=== PATIENT | male | born 1935 | race Caucasian/White ===

== ENCOUNTER → 2017-09-28 10:31 | Outpatient (CLI) | payer OTHER, SELFPAY ==
--- NOTE | 2017-09-28 | DI.US.S_ITS ---
PROCEDURE: US ABDOMEN COMPLETE INDICATIONS: ABDOMINAL ANEURYSM TECHNIQUE: Real-time scanning was performed of the abdominal and retroperitoneal organs, with image documentation. COMPARISON: [facility], US, ABDOMEN COMPLETE, 10/24/2016, 11:10. FINDINGS: Liver: Liver is normal in size and normal in echotexture. Subtle 1.5 x 1.2 x 1.3 cm hypoechoic area in right lobe of liver adjacent to gallbladder fossa is seen with no internal vascularity. Gallbladder: Contains sludge material and small stones in its dependent portion. No gallbladder wall thickening or pericholecystic fluid. Biliary ducts: Intrahepatic bile ducts are non-dilated. Extrahepatic bile duct caliber measures 7 mm. Normal is 6-7 mm or less in diameter, or 10 mm or less post-cholecystectomy. Pancreas: Visualized portions of the pancreas are sonographically normal. The main pancreatic duct is again seen to be dilated up to 7 mm in diameter 2 small stones measures 5 and 6 mm in size seen within the pancreatic duct, not significantly changed from prior studies. Spleen: Spleen is normal in size and homogeneous in echotexture. Kidneys: Kidneys are normal in size and echotexture. Right kidney measures 10.1 cm long; left kidney measures 8.4 cm long. No hydronephrosis or nephrolithiasis. No solid masses. 2 x 2 by 3.2 cm cyst is seen in the midpole of right kidney. Aorta: Again noted is infrarenal abdominal aortic aneurysm measures up to 4.6 x 4.4 cm in transverse dimension compared to 4.5 x 4.3 cm in 2017. No evidence of rupture. No brandyn-aortic fluid. Proximal and mid abdominal aorta are normal in size. Iliacs: Proximal common iliac arteries are normal in caliber less than 2.5 cm. IVC: Intrahepatic inferior vena cava is patent. Miscellaneous: No free abdominal fluid. IMPRESSION: 1. Infrarenal abdominal aortic aneurysm, minimally increased in size compared to 2017 study, now measures 4.6 x 4.4 cm in axial dimension compared to 4.5 x 4.3 cm on previous study. 2. Right renal cyst and nonobstructing right renal stone. 3. Sludge and small stones in the dependent portion of gallbladder without evidence of acute cholecystitis. 4. Stable dilatation of main pancreatic duct with pancreatic ductal stones, not significantly changed from prior study. 5. 1.5 x 1.2 x 1.3 cm hypoechoic area in right lobe of liver which could represent a small hemangioma. No internal vascularity seen. Dictated by: Sukh Bazzi M.D. on 09/28/2017 at 13:12 Approved by: Sukh Bazzi M.D. on 09/28/2017 at 13:24
== END ==
PROVIDERS: PCP Family Medicine; Visit Provider Family Medicine
DX: I71.4 Abdominal aortic aneurysm, without rupture (principal)
CPT/HCPCS: 76700

== ENCOUNTER → 2018-04-17 10:32 | Outpatient (CLI) | payer OTHER, SELFPAY ==
--- NOTE | 2018-04-17 | DI.US.S_ITS ---
PROCEDURE: US RETRO PERITONEAL LIMITED INDICATIONS: ABDOMINAL AORTIC ANEURYSM WITHOUT RUPTURE TECHNIQUE: Real time scanning was performed of the aorta and iliac arteries, with image documentation. COMPARISON: , US, US ABDOMEN COMPLETE, 09/28/2017, 11:20. FINDINGS: Aorta: Proximal aortic diameter measures 2.5 cm. Mid-aorta measures 2.1 cm. Distal aortic diameter is 4.3 x 4.7 cm, and extending to involve 6.1 cm portion of distal abdominal aorta. This was measured at 4.6 x 4.9 cm in length on previous study. Thrombus formation within the aneurysmal sac is seen. No periaortic free fluid. Iliac arteries: Right common iliac artery measures 1.5 cm. Left common iliac artery measures 1.3 cm. Incidental finding of 4 mm calcification is again seen in pancreatic body/tail area unchanged from previous study. IMPRESSION: 1. Fusiform infrarenal abdominal aortic aneurysm now measures 4.3 x 4.7 cm in size, slightly decreased in size compared to 2018 study. No evidence of rupture. Thrombus formation within the aneurysmal sac. Dictated by: Sukh Bazzi M.D. on 04/17/2018 at 13:58 Approved by: Sukh Bazzi M.D. on 04/17/2018 at 14:01
== END ==
PROVIDERS: PCP Family Medicine; Visit Provider Family Medicine
DX: I71.4 Abdominal aortic aneurysm, without rupture (principal)
CPT/HCPCS: 76770; 76775

== ENCOUNTER 2018-10-03 12:53 | Emergency (ER) | payer OTHER, SELFPAY ==
[2018-10-03 13:01] VITALS: BP 165/77; PULSE 66; RESP 12; TEMP 36.4; O2SAT 96; BMI 26.9
--- NOTE | 2018-10-03 13:26 | DI.US.S_ITS ---
PROCEDURE: US AORTA LIMITED INDICATIONS: KNOWN AAA WITH HYPERTENSION TECHNIQUE: Real time scanning was performed of the aorta and iliac arteries, with image documentation. COMPARISON: None. FINDINGS: Aorta: Proximal aortic diameter measures 2.9 cm. Mid-aorta measures 2.2 cm. There is a distal abnormal aortic aneurysm, which measures 5.2 cm AP and 5.2 cm transversely, with a craniocaudal extent of 7.6 cm. This aneurysm previously measured 4.2 x 4.2 x 6.1 cm. The aneurysm contains mural thrombus and extends to the iliac bifurcation. Iliac arteries: Right common iliac artery measures 1.8 cm. Left common iliac artery measures 1.4 cm. Incidental note is made of a pancreatic ductal dilatation, measuring 9 mm. A cystic focus can be seen along the pancreas that measures 1.8 x 0.9 x 0.6 cm. IMPRESSION: There is a growing infrarenal abdominal aortic aneurysm. Increased abnormal pancreatic ductal dilatation, now measuring 6 mm. 1.8 cm cystic lesion associated pancreas. Differential diagnosis includes a pancreatic pseudocyst versus focal pancreatic dilatation or a cystic lesion of the pancreas. If clinically appropriate, a dedicated pancreas protocol CT or MRI could be considered for further evaluation. Dictated by: Fercho Montemayor M.D. on 10/03/2018 at 14:01 Approved by: Fercho Montemayor M.D. on 10/03/2018 at 14:04
--- NOTE | 2018-10-03 13:27 | DI.RAD.S_ITS ---
PROCEDURE: XR CHEST 1V INDICATIONS: hypertension, chest pain TECHNIQUE: One view of the chest was acquired. COMPARISON: None. FINDINGS: Surgical changes and devices: Median sternotomy changes are present. Lungs and pleura: The left diaphragm is not well-seen, which may be related to a superimposed area of mild pulmonary consolidation. No large effusion or definite pneumothorax is appreciated. Lucency within the lung apices may be present. Mediastinum: Mediastinal contours appear normal. Heart size is enlarged. There appears to be aortic atherosclerosis. Bones and chest wall: No suspicious bony lesions. Overlying soft tissues appear unremarkable. IMPRESSION: 1. Cardiomegaly without overt heart failure. 2. Possible left basilar atelectasis. Please correlate clinically to exclude superimposed pneumonia. Dictated by: Aiden Bauer M.D. on 10/03/2018 at 13:09 Approved by: Aiden Bauer M.D. on 10/03/2018 at 13:10
[2018-10-03 13:39] LABS: Add Manual Diff / Slide Review NO; Basophils Absolute Auto 200 /uL (0-100); Basophils Percent Auto 2.3 % (0-2); Eosinophils Absolute Auto 400 /uL (0-450); Eosinophils Percent Auto 5.6 % (2-4); Hematocrit 43.1 % (41-53); Hemoglobin 14.8 g/dL (13.5-17.5); Lymphocytes Absolute Auto 2000 /uL (1100-4500); Lymphocytes Percent Auto 26.8 % (25-40); Mean Corpuscular HGB Conc 34.2 % (30-36); Mean Corpuscular Hemoglobin 29.5 PG (26-34); Mean Corpuscular Volume 86.1 fL (80-100); Monocytes Absolute Auto 900 /uL (0-900); Neutrophils Absolute Auto 3900 /uL (1500-7000); Neutrophils Percent Auto 53.3 % (50-75); Platelet Count 141 X10^3/uL (150-400); Red Blood Cell Count 5.01 X10^6/uL (4.5-5.9); Red Cell Distribution Width 13.6 % (11.6-14.8); White Blood Cell Count 7.3 X10^3/uL (4.5-11.0)
--- NOTE | 2018-10-03 13:58 | ED_ITS ---
HPI - General Adult General Chief complaint: Hypertension Stated complaint: states DR wanted him seen to check his heart out Time Seen by Provider: 10/03/18 13:00 Source: patient Mode of arrival: ambulatory Limitations: no limitations History of Present Illness HPI narrative: Patient is an 82-year-old male who hypertension. He states that he takes atenolol for the last 18 years with blood pressure has been controlled. However over the last few days he has been under quite a lot of stresses blood pressure has been up to the 200s. His abdominal aortic aneurysm and his doctor was concerned it may have expanded with his elevated blood pressure. He actually has no abdominal pain nausea vomiting dizziness lightheadedness or passing out. He adamantly denies any chest pain shortness of breath pain with exertion or any symptoms. He states he would not be here if it were not for his doctor Onset (ago): day(s) Related Data Home Medications Medication Instructions Recorded Confirmed Vitamin D3 1 cap PO DAILY 10/03/18 10/03/18 ascorbic acid (vitamin C) [Vitamin 1,000 mg PO DAILY 10/03/18 10/03/18 C] atenolol 50 mg PO QPM 10/03/18 10/03/18 niacin 1,000 mg PO BEDTIME 10/03/18 10/03/18 vitamin E 400 unit PO DAILY 10/03/18 10/03/18 Allergies Allergy/AdvReac Type Severity Reaction Status Date / Time No Known Drug Allergies Allergy Verified 10/03/18 13:01 Review of Systems Review of Systems GENERAL: Denies chills, fatigue, malaise, fever, sweats, travel HEENT: Denies sinus pain, ear pain, sore throat, difficulty swallowing, neck pain RESPIRATORY: Denies dyspnea, cough, wheezing, hemoptysis, sputum. CARDIOVASCULAR: Denies chest pain, palpitations, orthopnea, edema GASTROINTESTINAL: Denies nausea, vomiting, abdominal pain, diarrhea, constipation, melena. : Denies dysuria, frequency, incontinence, hematuria, urinary retention, flank pain. MUSCULOSKELETAL: Denies weakness, joint pain, or bony pain SKIN: No rash, no erythema, no pruritus NEUROLOGIC: Denies weakness, dizziness, headache, numbness, change in speech, confusion PSYCHIATRIC: No concerning psychosocial issues. 12 point review of systems is negative except for those stated above and [facility] Medical History Hypertension (Acute) Social History Smoking Status: Never smoker Social History Smoking Status: Never smoker Exam Initial Vital Signs Initial Vital Signs: Vital Signs Temperature 97.6 F 10/03/18 13:01 Pulse Rate 66 10/03/18 13:01 Respiratory Rate 12 10/03/18 13:01 Blood Pressure 165/77 H 10/03/18 13:01 Pulse Oximetry 96 10/03/18 13:01 GENERAL: Alert well-appearing elderly male HEENT: Head atraumatic,EOMI, pupils reactive, face symmetric, moist mucous m embranes CARDIOVASCULAR: Regular rate and rhythm without murmurs, rubs or gallops. RESPIRATORY: Breath sounds equal bilaterally, no wheezes rales or rhonchi. ABDOMEN: Soft, nontender. Normoactive bowel sounds all 4 quadrants. No guarding or rebound. No pulsatile masses EXTREMITIES: Normal range of motion, no clubbing or edema. Neurovascularly intact NEUROLOGICAL: Alert and oriented x4.Normal gait and speech. Cranial nerves II through XII grossly intact. SKIN: Warm, dry, no laceration, no petechiae, no rashes or lesions. Course Orders Ordered: ED Orders 10/03/18 13:02 EKG-12 Lead Routine 10/03/18 13:26 US aorta limited Stat 10/03/18 13:27 XR chest 1V Stat 10/03/18 13:35 Complete Blood Count AUTO DIFF Stat Comprehensive Metabolic Panel Stat Lipase Stat Troponin & CK Cardiac Panel Stat 10/03/18 14:12 Urine Culture Stat Urine Microscopic Stat Vital Signs - 8 hr 10/03/18 13:01 10/03/18 14:13 10/03/18 15:30 Temperature 97.6 F Pulse Rate 66 57 L 60 Respiratory Rate 12 15 18 Blood Pressure 165/77 H Blood Pressure [Left Arm] 149/69 H 165/68 H Pulse Oximetry 96 94 95 Medical Decision Making Lab Data Lab results reviewed: Yes I reviewed the patient's lab results. Result diagrams: 10/03/18 13:35 10/03/18 13:35 Lab Results 10/03/18 10/03/18 10/03/18 Range/Units 13:35 13:35 14:12 WBC 7.3 (4.5-11.0) X10^3/uL RBC 5.01 (4.5-5.9) X10^6/uL Hgb 14.8 (13.5-17.5) g/dL Hct 43.1 (41-53) % MCV 86.1 (80-100) fL MCH 29.5 (26-34) PG MCHC 34.2 (30-36) % RDW 13.6 (11.6-14.8) % Plt Count 141 L (150-400) X10^3/uL Neut % (Auto) 53.3 (50-75) % Lymph % (Auto) 26.8 (25-40) % [place] % (Auto) 12.0 (3-14) % Eos % (Auto) 5.6 H (2-4) % Baso % (Auto) 2.3 H (0-2) % Neut # (Auto) 3900 (8182-6828) /uL Lymph # (Auto) 2000 (7916-6905) /uL [place] # (Auto) 900 (0-900) /uL Eos # (Auto) 400 (0-450) /uL Baso # (Auto) 200 H (0-100) /uL Sodium 142 (137-145) mmol/L Potassium 4.5 (3.4-5.1) mmol/L Chloride 106 (98-107) mmol/L Carbon Dioxide 25 (22-32) mmol/L BUN 22 H (9-20) mg/dL Creatinine 1.10 (0.66-1.25) mg/dL Estimated GFR > 60.0 (>60) mL/min BUN/Creatinine Ratio 20.0 (6-22) Glucose 85 (80-110) mg/dL Calcium 9.5 (8.4-10.2) mg/dL Total Bilirubin 0.6 (0.2-1.3) mg/dL AST 50 (17-59) IU/L ALT 24 (21-72) IU/L Alkaline Phosphatase 88 (38-126) U/L Total Creatine Kinase 111 (55-170) U/L CK-MB (CK-2) 1.30 (<2.37) ng/mL CK-MB (CK-2) Rel Index 1.2 L (1.5-5.0) % Troponin I < 0.012 (0.01-0.034) ng/mL Total Protein 8.6 H (6.3-8.2) g/dL Albumin 4.8 (3.5-5.0) g/dL Globulin 3.8 (1.7-4.1) g/dL Albumin/Globulin Ratio 1.3 (1.0-2.8) Lipase 122 (23-300) U/L Urine RBC 0-1/hpf (0-5/HPF) Urine WBC 30-100/hpf H (0-5/HPF) Urine Bacteria Moderate (10-30) H (None) Ur Culture Indicated? Specimen cultured Urine Dip Bedside Urine Glucose Negative Bedside Urine Bilirubin - Negative Bedside Urine Ketone - Negative Urine Specific [place] 1.025 Bedside Urine Occult Blood +/- Bedside Urine pH 6 Bedside Urine Protein +/- 15 Bedside Urine Urobilinogen - Negative Bedside Urine Nitrite - Negative Bedside Urine Leukocytes +++ 500 Esterase Point of care testing: Urine Dip Bedside Urine Glucose Negative Bedside Urine Bilirubin - Negative Bedside Urine Ketone - Negative Urine Specific [place] 1.025 Bedside Urine Occult Blood +/- Bedside Urine pH 6 Bedside Urine Protein +/- 15 Bedside Urine Urobilinogen - Negative Bedside Urine Nitrite - Negative Bedside Urine Leukocytes +++ 500 Esterase Imaging Data US - abdomen: Radiologist's impression: PROCEDURE: US AORTA LIMITED INDICATIONS: KNOWN AAA WITH HYPERTENSION TECHNIQUE: Real time scanning was performed of the aorta and iliac arteries, with image documentation. COMPARISON: None. FINDINGS: Aorta: Proximal aortic diameter measures 2.9 cm. Mid-aorta measures 2.2 cm. There is a distal abnormal aortic aneurysm, which measures 5.2 cm AP and 5.2 cm transversely, with a craniocaudal extent of 7.6 cm. This aneurysm previously measured 4.2 x 4.2 x 6.1 cm. The aneurysm contains mural thrombus and extends to the iliac bifurcation. Iliac arteries: Right common iliac artery measures 1.8 cm. Left common iliac artery measures 1.4 cm. Incidental note is made of a pancreatic ductal dilatation, measuring 9 mm. A cystic focus can be seen along the pancreas that measures 1.8 x 0.9 x 0.6 cm. IMPRESSION: There is a growing infrarenal abdominal aortic aneurysm. Increased abnormal pancreatic ductal dilatation, now measuring 6 mm. 1.8 cm cystic lesion associated pancreas. Differential diagnosis includes a pancreatic pseudocyst versus focal pancreatic dilatation or a cystic lesion of the pancreas. If clinically appropriate, a dedicated pancreas protocol CT or MRI could be considered for further evaluation. Dictated by: Fercho Montemayor M.D. on 10/03/2018 at 14:01 ECG Data Attestation: I personally reviewed and interpreted this ECG as follows: Prior ECG tracings: not available for review Interpretation: Sinus rhythm rate 63 p.r. interval 199 QRS 146 QTC 431 right bundle-branch block noted no ST elevations or T-wave inversions MDM Narrative Medical decision making narrative: The patient's PCP is not in the office today but I left a message with a motel front desk clerk Dr. Jose Luis Maynard real return to the office tomorrow. Given her method of enlarging aortic aneurysm and to follow up with vascular surgery. At this time patient is completely asymptomatic. No indication for any sort of emergent intervention of any kind. However vascular surgery does need to be consulted as an outpatient. Discharge Plan Departure Patient Disposition: Home Clinical Impression: Hypertension Qualifiers: Hypertension type: essential hypertension Qualified Code(s): I10 - Essential (primary) hypertension AAA (abdominal aortic aneurysm) Qualifiers: Presence of rupture: without rupture Qualified Code(s): I71.4 - Abdominal aortic aneurysm, without rupture Discharge Date/Time: 10/03/18 15:39 Interventions: ED Discharge Assessment Last Done: 10/03/18 15:39 Instructions: Aortic Aneurysm, DI for Endovascular Repair of Abdominal Aortic Aneurysm Activity Restrictions/Additional Instructions: *You have been diagnosed with abdominal aortic aneurysm and hyper *What to do: At this time you her aneurysm has grown but no emergent intervention required. It is imperative that he follow up vascular surgery. I have called Dr. beavers office and informed him of the results of your ultrasound. *Continue to take medications as directed *Follow up with your primary care provider in 2-3 days *Return to ER if you should have passing-out abdominal pain lightheadedness chest pain [or] any new, worsening or concerning symptoms Prescriptions: No Action ascorbic acid (vitamin C) [Vitamin C] 1,000 mg Tablet 1,000 mg PO DAILY RF: 0 niacin 1,000 mg Tablet Extended Release 24 Hr 1,000 mg PO BEDTIME RF: 0 atenolol 50 mg Tablet 50 mg PO QPM RF: 0 vitamin E 400 unit Capsule 400 unit PO DAILY RF: 0 Vitamin D3 1 cap PO DAILY RF: 0 Referrals: Gael Amaya MD [Primary Care Provider] -
[2018-10-03 13:59] LABS: Alanine Aminotransferase 24 IU/L (21-72); Albumin 4.8 g/dL (3.5-5.0); Albumin Globulin Ratio 1.3 (1.0-2.8); Alkaline Phosphatase 88 U/L (38-126); Aspartate Aminotransferase 50 IU/L (17-59); Bilirubin Total 0.6 mg/dL (0.2-1.3); Blood Urea Nitrogen 22 mg/dL (9-20); Calcium 9.5 mg/dL (8.4-10.2); Carbon Dioxide 25 mmol/L (22-32); Chloride 106 mmol/L (98-107); Creatine Kinase 111 U/L (55-170); Estimated Glomerular Filt Rate > 60.0 mL/min (>60); Globulin 3.8 g/dL (1.7-4.1); Glucose 85 mg/dL (80-110); HEMOLYSIS < 15 (0-50); Lipase 122 U/L (23-300); Potassium 4.5 mmol/L (3.4-5.1); Sodium 142 mmol/L (137-145); Total Protein 8.6 g/dL (6.3-8.2)
[2018-10-03 14:11] LABS: Troponin I < 0.012 ng/mL (0.01-0.034)
[2018-10-03 14:13] VITALS: BP 149/69; PULSE 57; RESP 15; O2SAT 94
[2018-10-03 14:15] LABS: CKMB % Relative Index 1.2 % (1.5-5.0)
--- NOTE | 2018-10-03 14:15 | PC.NURSE ---
pt c/o fluctuating high bp. pt states 2 days ago pt had episode of 3 sneezes, checked his bp and it was in the 200's. sneezing also caused ruptured blood vessel to left eye. today pt does not have HTN. pt states his primary md ordered out patient US of his heart pt states he is in town from [place] with his family and us was unable to schedule him today so he checked into ED. pt denies symptoms at this time.
[2018-10-03 15:03] LABS: Bacteria Urine Moderate (10-30); Culture Indicated Urine Specimen Cultured; RBC Urine 0-1/HPF (0-5/HPF); WBC Urine 30-100/HPF (0-5/HPF)
[2018-10-03 15:30] VITALS: BP 165/68; PULSE 60; RESP 18; O2SAT 95
== END 2018-10-03 15:39 | disposition home or self-care (01) ==
PROVIDERS: Emergency Provider Emergency Medicine; PCP Family Medicine
DX: I10 Essential (primary) hypertension (principal); I71.4 Abdominal aortic aneurysm, without rupture
CPT/HCPCS: 36591; 71045; 80053; 81003; 81015; 82550; 82553; 83690; 84484; 85025; 87077; 87086; 93005; 93979; 99283; 99285

== ENCOUNTER → 2020-09-25 10:33 | Outpatient (CLI) | payer MEDICARE, OTHER, SELFPAY ==
--- NOTE | 2020-09-25 10:35 | DI.US.S_ITS ---
PROCEDURE: US ABDOMEN COMPLETE INDICATIONS: DISTAL AORTIC ANEURYSM AND PANCREATIC DUCTAL DILATION TECHNIQUE: Real-time scanning was performed of the abdominal and retroperitoneal organs, with image documentation. COMPARISON: None. FINDINGS: Liver: Liver is normal in size and homogeneous in echotexture. Liver is diffusely echogenic. Hypoechoic area noted in the right lobe of the liver likely represents focal fatty sparing. Gallbladder: Multiple gallstones. 3 millimeter gallstones noted in the gallbladder neck. Gallbladder wall is not thickened measuring 2.3 millimeters. Gallbladder is prominent measuring 9.4 centimeters in long axis. No pericholecystic fluid. No sonographic Langley sign. Biliary ducts: Intrahepatic bile ducts are non-dilated. Extrahepatic bile duct caliber measures 5.7 mm. Normal is 6-7 mm or less in diameter, or 10 mm or less post-cholecystectomy. Pancreas: Not seen due to bowel gas. Spleen: Spleen is normal in size and homogeneous in echotexture. Kidneys: Kidneys are normal in size and echotexture. Right kidney measures 10.6 cm long; left kidney measures 9.6 cm long. Bilateral renal cysts identified. Bilateral nonobstructing renal calcifications noted. No hydronephrosis. No solid masses. Aorta: 5.4 x 5.5 centimeter distal abdominal aortic aneurysm. Iliacs: Proximal common iliac arteries are normal in caliber at less than 2.5 cm. IVC: Intrahepatic inferior vena cava is patent. Miscellaneous: No free abdominal fluid. IMPRESSION: 1. Echogenic liver. Finding typically represents fatty infiltration; however, finding is nonspecific and correlation with clinical and laboratory findings is recommended to exclude other etiologies including hepatic cirrhosis. 2. Cholelithiasis without sonographic evidence of cholecystitis. If there is continued clinical concern for cholecystitis, a nuclear medicine HIDA scan should be considered for further evaluation. 3. 5.5 x 5.4 centimeter abdominal aortic aneurysm. 4. Bilateral nonobstructing renal calcifications. Bilateral renal cysts. Dictated by: Kelsy Reyes MD, PhD on 09/25/2020 at 12:00 Approved by: Kelsy Reyes MD, PhD on 09/25/2020 at 12:04
== END ==
PROVIDERS: PCP Physician Assistant; Referring Provider Physician Assistant; Visit Provider Physician Assistant
DX: I71.4 Abdominal aortic aneurysm, without rupture (principal); K86.89 Other specified diseases of pancreas; I10 Essential (primary) hypertension; K80.20 Calculus of gallbladder without cholecystitis without obstruction; N20.0 Calculus of kidney; N28.1 Cyst of kidney, acquired
CPT/HCPCS: 76700

== ENCOUNTER → 2020-09-28 13:56 | Outpatient (CLI) | payer MEDICARE, OTHER, SELFPAY ==
[2020-09-28 19:24] LABS: Add Manual Diff / Slide Review NO; Basophils Absolute Auto 100 /uL (0-100); Basophils Percent Auto 1.1 % (0-2); Eosinophils Absolute Auto 400 /uL (0-450); Eosinophils Percent Auto 5.7 % (2-4); Hematocrit 41.3 % (41-53); Hemoglobin 13.8 g/dL (13.5-17.5); Lymphocytes Absolute Auto 1800 /uL (1100-4500); Lymphocytes Percent Auto 26.5 % (25-40); Mean Corpuscular HGB Conc 33.5 % (30-36); Mean Corpuscular Hemoglobin 29.4 PG (26-34); Mean Corpuscular Volume 87.7 fL (80-100); Monocytes Absolute Auto 400 /uL (0-900); Monocytes Percent Auto 6.6 % (3-14); Neutrophils Absolute Auto 4000 /uL (1500-7000); Neutrophils Percent Auto 60.1 % (50-75); Platelet Count 152 X10^3/uL (150-400); White Blood Cell Count 6.7 X10^3/uL (4.5-11.0)
[2020-09-28 19:36] LABS: Alanine Aminotransferase 20 IU/L (<50); Albumin 4.5 g/dL (3.5-5.0); Albumin Globulin Ratio 1.4 (1.0-2.8); Alkaline Phosphatase 78 U/L (38-126); Aspartate Aminotransferase 41 IU/L (17-59); Bilirubin Total 0.5 mg/dL (0.2-1.3); Blood Urea Nitrogen 27 mg/dL (9-20); Calcium 9.8 mg/dL (8.4-10.2); Carbon Dioxide 24 mmol/L (22-32); Chloride 108 mmol/L (98-107); Cholesterol 164 mg/dL (140-199); Estimated Glomerular Filt Rate 55.8 mL/min (>60); Globulin 3.3 g/dL (1.7-4.1); Glucose 183 mg/dL (80-110); HDL Cholesterol 32 mg/dL (40-60); HEMOLYSIS < 15 (0-50); LDL Cholesterol Calculated 96 mg/dL (<100); Potassium 4.3 mmol/L (3.4-5.1); Sodium 143 mmol/L (137-145); Total Protein 7.8 g/dL (6.3-8.2); Triglycerides 182 mg/dL (35-150); Uric Acid 9.7 mg/dL (3.5-8.5)
== END ==
PROVIDERS: PCP Physician Assistant; Referring Provider Physician Assistant; Visit Provider Physician Assistant
DX: E78.5 Hyperlipidemia, unspecified (principal); R73.01 Impaired fasting glucose; I10 Essential (primary) hypertension; I25.10 Atherosclerotic heart disease of native coronary artery without angina pectoris; M10.9 Gout, unspecified
CPT/HCPCS: 80053; 80061; 83036; 84550; 85025

== ENCOUNTER → 2020-12-02 11:48 | Outpatient (CLI) | payer MEDICARE, OTHER, SELFPAY ==
--- NOTE | 2020-12-02 11:50 | DI.MRI.S_ITS ---
PROCEDURE: MR LUMBAR SPINE WO CON INDICATIONS: low-back leg pains not improving TECHNIQUE: Noncontrast sagittal T1 spin echo and T2 fast echo, sagittal STIR, axial T1 and T2 fast spin echo through the lumbar spine. In cases with scoliosis, additional coronal T2 fast spin echo may be performed. COMPARISON: [facility], MR, L-SPINE WITHOUT CONTRAST, 03/03/2008, 12:31. FINDINGS: Image quality: Excellent. Alignment and Curvature: Trace degenerative retrolisthesis of T12 on L1, L1 on L2, and L2 on L3. Trace degenerative anterolisthesis of L4 on L5. Trace degenerative retrolisthesis of L5 on S1. Bone Marrow: Marrow is of normal overall signal. No acute vertebral body compression fractures. Spinal Cord: Conus medullaris terminates at the L1 level. Visualized cord demonstrates normal signal and size. Paraspinous Soft Tissues: No paravertebral masses. T11-T12: No significant change. Diffuse disc bulge with mild indentation on the ventral cord. Mild canal stenosis. Mild bilateral foraminal stenosis. T12-L1: Interval increase in disc height loss, severe. Posterior disc plus osteophyte. Interval development of a focal small left posterior disc protrusion which may irritate the left L1 nerve root in the left lateral recess. Reference image 9/2 (T2 sagittal sequence) and image 10/5 (T2 axial sequence). Moderate bilateral foraminal narrowing with mild flattening deformity on the exiting bilateral L1 nerve roots. L1-L2: Disc bulge. Facet hypertrophy. No significant canal stenosis. Moderate right foraminal narrowing with mild flattening deformity on the exiting right L2 nerve root. Mild to moderate left foraminal narrowing. L2-L3: Posterior disc plus osteophyte. Facet and ligament hypertrophy. Mild canal stenosis. Far left lateral disc bulge. Moderate bilateral foraminal narrowing with flattening deformity on the exiting bilateral L2 nerve roots. L3-L4: Development of moderate diffuse disc bulge. Worsening of bilateral facet and ligament hypertrophy. Moderate to severe canal stenosis. There is a free fragment present in the medial aspect of the right foramen which contributes to severe right foraminal stenosis and impingement on the right L3 nerve root. Reference image 5/2 and image 22/5. L4-L5: Mild anterolisthesis of L4 on L5. Exuberant facet and ligament hypertrophy. Severe bilateral lateral recess stenosis and moderate central canal stenosis. Moderate right foraminal narrowing with flattening deformity on the exiting right L4 nerve root. Mild to moderate left foraminal narrowing. L5-S1: Interval increase in disc height loss and increase in posterior osteophyte. Prominent bilateral facet hypertrophy. No significant central canal stenosis. Severe bilateral foraminal narrowing with bilateral foraminal nerve root impingement. IMPRESSION: 1. Diffuse degenerative change. 2. Significant progression of findings at L3-L4. Moderate to severe central canal stenosis has developed. Additionally, a free fragment in the medial aspect of the right foramen contributes to severe right foraminal stenosis and right L3 nerve root impingement. 3. At L4-L5, there is moderate central canal stenosis and severe bilateral lateral recess stenosis. 4. There is severe bilateral foraminal narrowing at L5-S1. 5. Multilevel facet arthropathy. Dictated by: Parker Soto M.D. on 12/02/2020 at 13:37 Approved by: Parker Soto M.D. on 12/02/2020 at 15:08
== END ==
PROVIDERS: PCP Physician Assistant; Referring Provider Physician Assistant; Visit Provider Physician Assistant
DX: M47.26 Other spondylosis with radiculopathy, lumbar region (principal); M47.27 Other spondylosis with radiculopathy, lumbosacral region; M48.061 Spinal stenosis, lumbar region without neurogenic claudication; M48.07 Spinal stenosis, lumbosacral region; I71.4 Abdominal aortic aneurysm, without rupture
CPT/HCPCS: 72148

== ENCOUNTER → 2020-12-15 09:20 | Outpatient (CLI) | payer MEDICARE, OTHER, SELFPAY ==
[2020-12-15 19:21] LABS: Hemoglobin A1C% w Est Avg Glu 6.1 % (4.0-6.0)
[2020-12-15 19:24] LABS: BUN Creatinine Ratio 16.7 (6-22); Blood Urea Nitrogen 20 mg/dL (9-20); Calcium 9.2 mg/dL (8.4-10.2); Carbon Dioxide 27 mmol/L (22-32); Chloride 105 mmol/L (98-107); Estimated Glomerular Filt Rate 57.3 mL/min (>60); Glucose 176 mg/dL (80-110); HEMOLYSIS < 15 (0-50); Potassium 4.6 mmol/L (3.4-5.1); Sodium 142 mmol/L (137-145)
== END ==
PROVIDERS: PCP Physician Assistant; Referring Provider Physician Assistant; Visit Provider Physician Assistant
DX: I10 Essential (primary) hypertension (principal); R73.01 Impaired fasting glucose; M10.9 Gout, unspecified
CPT/HCPCS: 80048; 83036

== ENCOUNTER → 2021-02-17 09:48 | Outpatient (CLI) | payer MEDICARE, OTHER, SELFPAY ==
[2021-02-17 19:24] LABS: Add Manual Diff / Slide Review NO; Basophils Absolute Auto 100 /uL (0-100); Basophils Percent Auto 1.3 % (0-2); Eosinophils Absolute Auto 400 /uL (0-450); Eosinophils Percent Auto 4.7 % (2-4); Hematocrit 36.5 % (41-53); Hemoglobin 11.9 g/dL (13.5-17.5); Lymphocytes Absolute Auto 1200 /uL (1100-4500); Lymphocytes Percent Auto 15.6 % (25-40); Mean Corpuscular HGB Conc 32.7 % (30-36); Mean Corpuscular Hemoglobin 27.9 PG (26-34); Mean Corpuscular Volume 85.3 fL (80-100); Monocytes Absolute Auto 700 /uL (0-900); Monocytes Percent Auto 8.9 % (3-14); Neutrophils Absolute Auto 5200 /uL (1500-7000); Neutrophils Percent Auto 69.5 % (50-75); Platelet Count 242 X10^3/uL (150-400); Red Blood Cell Count 4.28 X10^6/uL (4.5-5.9); Red Cell Distribution Width 14.1 % (11.6-14.8); White Blood Cell Count 7.4 X10^3/uL (4.5-11.0)
[2021-02-17 19:29] LABS: Alanine Aminotransferase 24 IU/L (<50); Albumin Globulin Ratio 1.1 (1.0-2.8); Alkaline Phosphatase 83 U/L (38-126); Aspartate Aminotransferase 44 IU/L (17-59); BUN Creatinine Ratio 14.5 (6-22); Bilirubin Total 0.4 mg/dL (0.2-1.3); Blood Urea Nitrogen 30 mg/dL (9-20); Calcium 9.2 mg/dL (8.4-10.2); Carbon Dioxide 24 mmol/L (22-32); Chloride 108 mmol/L (98-107); Estimated Glomerular Filt Rate 30.5 mL/min (>60); Globulin 3.6 g/dL (1.7-4.1); Glucose 122 mg/dL (80-110); HEMOLYSIS < 15 (0-50); Sodium 141 mmol/L (137-145); Total Protein 7.6 g/dL (6.3-8.2)
[2021-02-17 19:34] LABS: Potassium 5.7 mmol/L (3.4-5.1)
[2021-02-17 20:05] LABS: Prostate Specific Antigen 10.9 ng/mL (0.10-4.00)
== END ==
PROVIDERS: PCP Family Medicine; Visit Provider Physician Assistant
DX: N23 Unspecified renal colic (principal); N40.0 Benign prostatic hyperplasia without lower urinary tract symptoms; N39.0 Urinary tract infection, site not specified
CPT/HCPCS: 80053; 84153; 85025; 87086

== ENCOUNTER → 2021-02-18 12:47 | Outpatient (CLI) | payer MEDICARE, OTHER, SELFPAY ==
[2021-02-18 19:10] LABS: Alanine Aminotransferase 24 IU/L (<50); Albumin 4.2 g/dL (3.5-5.0); Albumin Globulin Ratio 1.1 (1.0-2.8); Alkaline Phosphatase 98 U/L (38-126); Aspartate Aminotransferase 46 IU/L (17-59); BUN Creatinine Ratio 15.2 (6-22); Bilirubin Total 0.5 mg/dL (0.2-1.3); Blood Urea Nitrogen 29 mg/dL (9-20); Calcium 9.2 mg/dL (8.4-10.2); Carbon Dioxide 25 mmol/L (22-32); Chloride 107 mmol/L (98-107); Estimated Glomerular Filt Rate 33.5 mL/min (>60); Globulin 3.8 g/dL (1.7-4.1); Glucose 207 mg/dL (80-110); HEMOLYSIS < 15 (0-50); Potassium 5.1 mmol/L (3.4-5.1); Sodium 142 mmol/L (137-145)
== END ==
PROVIDERS: PCP Family Medicine; Referring Provider Physician Assistant; Visit Provider Physician Assistant
DX: E87.5 Hyperkalemia (principal)
CPT/HCPCS: 80053

== ENCOUNTER → 2021-03-03 12:35 | Outpatient (CLI) | payer MEDICARE, OTHER, SELFPAY ==
[2021-03-03 19:02] LABS: Alanine Aminotransferase 28 IU/L (<50); Albumin 4.3 g/dL (3.5-5.0); Albumin Globulin Ratio 1.2 (1.0-2.8); Alkaline Phosphatase 83 U/L (38-126); Aspartate Aminotransferase 44 IU/L (17-59); BUN Creatinine Ratio 19.9 (6-22); Bilirubin Total 0.5 mg/dL (0.2-1.3); Blood Urea Nitrogen 30 mg/dL (9-20); Calcium 9.5 mg/dL (8.4-10.2); Carbon Dioxide 26 mmol/L (22-32); Chloride 110 mmol/L (98-107); Estimated Glomerular Filt Rate 43.9 mL/min (>60); Globulin 3.7 g/dL (1.7-4.1); Glucose 111 mg/dL (80-110); HEMOLYSIS < 15 (0-50); Potassium 4.7 mmol/L (3.4-5.1); Sodium 144 mmol/L (137-145)
== END ==
PROVIDERS: PCP Physician Assistant; Referring Provider Physician Assistant; Visit Provider Physician Assistant
DX: N39.0 Urinary tract infection, site not specified (principal); E87.5 Hyperkalemia; N18.9 Chronic kidney disease, unspecified; R31.9 Hematuria, unspecified
CPT/HCPCS: 80053; 87077; 87086; 87185; 87186

== ENCOUNTER → 2021-03-23 09:07 | Outpatient (CLI) | payer MEDICARE, OTHER, SELFPAY ==
[2021-03-23 18:38] LABS: HEMOLYSIS < 15 (0-50); Iron 64 ug/dL (49-181)
[2021-03-23 18:49] LABS: Percent Iron Saturation 29 % (20-50); Total Iron Binding Capacity 224 ug/dL (261-462); Transferrin 166 mg/dL (206-381)
[2021-03-24 08:22] LABS: Alanine Aminotransferase 18 IU/L (<50); Albumin 4.1 g/dL (3.5-5.0); Albumin Globulin Ratio 1.1 (1.0-2.8); Alkaline Phosphatase 90 U/L (38-126); Aspartate Aminotransferase 37 IU/L (17-59); BUN Creatinine Ratio 17.5 (6-22); Bilirubin Total 0.4 mg/dL (0.2-1.3); Blood Urea Nitrogen 30 mg/dL (9-20); Calcium 9.2 mg/dL (8.4-10.2); Carbon Dioxide 27 mmol/L (22-32); Chloride 107 mmol/L (98-107); Estimated Glomerular Filt Rate 38.1 mL/min (>60); Globulin 3.7 g/dL (1.7-4.1); Glucose 113 mg/dL (80-110); HEMOLYSIS < 15 (0-50); Potassium 4.3 mmol/L (3.4-5.1); Sodium 142 mmol/L (137-145); Total Protein 7.8 g/dL (6.3-8.2)
== END ==
PROVIDERS: PCP Physician Assistant; Visit Provider Physician Assistant
DX: N39.0 Urinary tract infection, site not specified (principal); D64.9 Anemia, unspecified; R31.9 Hematuria, unspecified; I10 Essential (primary) hypertension; N18.9 Chronic kidney disease, unspecified
CPT/HCPCS: 80053; 83540; 83550; 87077; 87086; 87186

== ENCOUNTER → 2023-03-13 11:47 | Outpatient (CLI) | payer MEDICARE, OTHER, SELFPAY ==
[2023-03-13 20:18] LABS: Add Manual Diff / Slide Review NO; Basophils Absolute Auto 0 /uL (0-100); Basophils Percent Auto 0.6 % (0-2); Eosinophils Absolute Auto 200 /uL (0-450); Eosinophils Percent Auto 3.6 % (2-4); Hematocrit 40.1 % (41-53); Hemoglobin 13.4 g/dL (13.5-17.5); Lymphocytes Absolute Auto 1500 /uL (1100-4500); Lymphocytes Percent Auto 21.9 % (25-40); Mean Corpuscular HGB Conc 33.4 % (30-36); Mean Corpuscular Hemoglobin 28.7 PG (26-34); Monocytes Absolute Auto 600 /uL (0-900); Monocytes Percent Auto 8.7 % (3-14); Neutrophils Absolute Auto 4400 /uL (1500-7000); Neutrophils Percent Auto 65.2 % (50-75); Platelet Count 193 X10^3/uL (150-400); Red Blood Cell Count 4.66 X10^6/uL (4.5-5.9); Red Cell Distribution Width 13.4 % (11.6-14.8); White Blood Cell Count 6.8 X10^3/uL (4.5-11.0)
[2023-03-13 20:24] LABS: Alanine Aminotransferase 24 IU/L (<50); Albumin 4.3 g/dL (3.5-5.0); Albumin Globulin Ratio 1.3 (1.0-2.8); Alkaline Phosphatase 88 U/L (38-126); Aspartate Aminotransferase 44 IU/L (17-59); Bilirubin Total 0.8 mg/dL (0.2-1.3); Blood Urea Nitrogen 15 mg/dL (9-20); Calcium 9.5 mg/dL (8.4-10.2); Carbon Dioxide 25 mmol/L (22-32); Chloride 104 mmol/L (98-107); Cholesterol 133 mg/dL (140-199); Estimated Glomerular Filt Rate > 60 mL/min (>60); Globulin 3.4 g/dL (1.7-4.1); Glucose 117 mg/dL (80-110); HDL Cholesterol 33 mg/dL (40-60); HEMOLYSIS < 15 (0-50); LDL Cholesterol Calculated 74 mg/dL (<100); Potassium 4.4 mmol/L (3.4-5.1); Sodium 141 mmol/L (137-145); Total Protein 7.7 g/dL (6.3-8.2); Triglycerides 131 mg/dL (35-150)
[2023-03-13 21:45] LABS: Creatinine Urine Random 45.7 mg/dL; Protein (Total) Urine Random 32 mg/dL (0-12)
== END ==
PROVIDERS: PCP Family Medicine; Visit Provider Family Medicine
DX: E66.9 Obesity, unspecified (principal); E11.69 Type 2 diabetes mellitus with other specified complication; R73.9 Hyperglycemia, unspecified; E78.5 Hyperlipidemia, unspecified; I10 Essential (primary) hypertension
CPT/HCPCS: 80053; 80061; 82570; 84156; 85025

== ENCOUNTER → 2023-03-15 12:42 | Outpatient (CLI) | payer MEDICARE, OTHER, SELFPAY ==
[2023-03-15 21:10] LABS: Bilirubin Urine UA NEGATIVE (NEGATIVE); Glucose Urine UA NEGATIVE (Negative); Ketones Urine UA 1+ (NEGATIVE); Leukocyte Esterase Urine UA 2+ (NEGATIVE); Nitrite Urine UA POSITIVE (Negative); Occult Blood Urine UA 3+ (Negative); Protein Urine UA 3+ (Negative); pH Urine UA 6.5 (4.5-8.0)
[2023-03-15 21:27] LABS: Appearance Urine UA CLOUDY; Color Urine UA RED
[2023-03-15 21:28] LABS: Bacteria Urine Moderate (10-30); Culture Indicated Urine Specimen Cultured; RBC Urine 30-100/HPF (0-5/HPF); Squamous Epithelial Cell Urine 1-5 /HPF (0-5/HPF); Urine Volume 10mL (spun); WBC Urine 10-30/HPF (0-5/HPF)
== END ==
PROVIDERS: PCP Family Medicine; Visit Provider Specialist
DX: Z46.6 Encounter for fitting and adjustment of urinary device (principal); N40.1 Benign prostatic hyperplasia with lower urinary tract symptoms; R33.8 Other retention of urine; R31.9 Hematuria, unspecified; Z87.440 Personal history of urinary (tract) infections
CPT/HCPCS: 81001; 87077; 87086; 87186

== ENCOUNTER → 2023-05-17 09:40 | Outpatient (CLI) | payer MEDICARE, OTHER, SELFPAY ==
[2023-05-17 19:42] LABS: Appearance Urine UA CLEAR; Bilirubin Urine UA NEGATIVE (NEGATIVE); Color Urine UA YELLOW; Glucose Urine UA NEGATIVE (Negative); Ketones Urine UA NEGATIVE (NEGATIVE); Leukocyte Esterase Urine UA 2+ (NEGATIVE); Occult Blood Urine UA 2+ (Negative); Protein Urine UA NEGATIVE (Negative); Specific Gravity Urine UA <=1.005 (1.000-1.035); Urobilinogen Urine UA 0.2 E.U./dL (0.2)
[2023-05-17 19:44] LABS: Nitrite Urine UA NEGATIVE (Negative)
[2023-05-17 19:56] LABS: Bacteria Urine Moderate (10-30); Mucus Urine 1+ (Negative); RBC Urine None Seen (0-5/HPF); Squamous Epithelial Cell Urine 0-1 /HPF (0-5/HPF); Urine Volume 10mL (spun); WBC Urine 10-30/HPF (0-5/HPF)
[2023-05-17 19:57] LABS: Culture Indicated Urine Specimen Cultured
== END ==
PROVIDERS: PCP Family Medicine; Visit Provider Specialist
DX: Z46.6 Encounter for fitting and adjustment of urinary device (principal)
CPT/HCPCS: 81001; 87077; 87086; 87186

== ENCOUNTER → 2023-05-29 12:54 | Outpatient (CLI) | payer MEDICARE, OTHER, SELFPAY ==
[2023-05-29 19:22] LABS: Add Manual Diff / Slide Review NO; Basophils Absolute Auto 100 /uL (0-100); Basophils Percent Auto 0.9 % (0-2); Eosinophils Absolute Auto 200 /uL (0-450); Eosinophils Percent Auto 3.2 % (2-4); Hematocrit 37.7 % (41-53); Hemoglobin 12.6 g/dL (13.5-17.5); Lymphocytes Absolute Auto 1500 /uL (1100-4500); Lymphocytes Percent Auto 19.6 % (25-40); Mean Corpuscular HGB Conc 33.4 % (30-36); Mean Corpuscular Hemoglobin 28.9 PG (26-34); Mean Corpuscular Volume 86.6 fL (80-100); Monocytes Absolute Auto 600 /uL (0-900); Monocytes Percent Auto 7.9 % (3-14); Neutrophils Absolute Auto 5300 /uL (1500-7000); Neutrophils Percent Auto 68.4 % (50-75); Platelet Count 248 X10^3/uL (150-400); Red Blood Cell Count 4.35 X10^6/uL (4.5-5.9); Red Cell Distribution Width 14.4 % (11.6-14.8); White Blood Cell Count 7.8 X10^3/uL (4.5-11.0)
[2023-05-29 19:26] LABS: HEMOLYSIS < 15 (0-50); Iron 80 ug/dL (49-181)
[2023-05-29 19:40] LABS: Percent Iron Saturation 35 % (20-50); Total Iron Binding Capacity 228 ug/dL (261-462); Transferrin 171 mg/dL (206-381)
[2023-05-29 20:09] LABS: Ferritin 288 ng/mL (18-464)
[2023-05-29 20:23] LABS: Vitamin B12 Reflex MMA if <400 361 pg/mL (239-931)
[2023-05-29 21:05] LABS: Folate 13.3 ng/mL (2.76-20.0)
[2023-06-01 22:17] LABS: Methylmalonic Acid,Serum 185 nmol/L (0-378)
== END ==
PROVIDERS: PCP Family Medicine; Visit Provider Family Medicine
DX: D64.9 Anemia, unspecified (principal); R31.9 Hematuria, unspecified
CPT/HCPCS: 82607; 82728; 82746; 83540; 83550; 83921; 85025

== ENCOUNTER → 2023-06-27 09:06 | Outpatient (CLI) | payer MEDICARE, OTHER, SELFPAY ==
[2023-06-27 19:34] LABS: Appearance Urine UA CLOUDY; Bilirubin Urine UA NEGATIVE (NEGATIVE); Color Urine UA RED; Glucose Urine UA NEGATIVE (Negative); Ketones Urine UA NEGATIVE (NEGATIVE); Leukocyte Esterase Urine UA TRACE (NEGATIVE); Nitrite Urine UA NEGATIVE (Negative); Occult Blood Urine UA 3+ (Negative); Protein Urine UA 2+ (Negative); Specific Gravity Urine UA >=1.030 (1.000-1.035); Urobilinogen Urine UA 0.2 E.U./dL (0.2)
[2023-06-27 19:38] LABS: Bacteria Urine Few (2-10); Culture Indicated Urine Specimen Cultured; RBC Urine >100/HPF (0-5/HPF); Squamous Epithelial Cell Urine 0-1 /HPF (0-5/HPF); Urine Volume 10mL (spun); WBC Urine 5-10/HPF (0-5/HPF)
== END ==
PROVIDERS: PCP Family Medicine; Visit Provider Specialist
DX: Z46.6 Encounter for fitting and adjustment of urinary device (principal); Z97.8 Presence of other specified devices
CPT/HCPCS: 81001; 87086

== ENCOUNTER → 2023-07-06 14:22 | Outpatient (CLI) | payer MEDICARE, OTHER, SELFPAY | PROVIDERS: PCP Family Medicine; Visit Provider Specialist | DX: Z97.8 Presence of other specified devices (principal); R33.9 Retention of urine, unspecified | CPT/HCPCS: 87086 ==

== ENCOUNTER → 2023-07-24 10:19 | Outpatient (CLI) | payer MEDICARE, OTHER, SELFPAY ==
[2023-07-24 20:21] LABS: Prostate Specific Antigen 7.45 ng/mL (0.10-4.00)
== END ==
PROVIDERS: PCP Family Medicine; Visit Provider Family Medicine
DX: R97.20 Elevated prostate specific antigen [PSA] (principal); N40.1 Benign prostatic hyperplasia with lower urinary tract symptoms; N13.8 Other obstructive and reflux uropathy
CPT/HCPCS: 84153

== ENCOUNTER → 2023-11-30 13:26 | Outpatient (CLI) | payer MEDICARE, OTHER, SELFPAY ==
[2023-11-30 21:12] LABS: Prostate Specific Antigen 9.19 ng/mL (0.10-4.00)
== END ==
PROVIDERS: PCP Family Medicine; Visit Provider Urology
DX: R97.20 Elevated prostate specific antigen [PSA] (principal); R33.9 Retention of urine, unspecified
CPT/HCPCS: 84153